=== PATIENT | male | born 1975 | race Caucasian/White ===

== ENCOUNTER 2018-09-19 12:37 | Emergency (ER) | payer SELFPAY ==
[~2018-09-19] VITALS: Ht 188 cm; Wt 82.1 kg
[2018-09-19] MEDS: MAGNESIUM HYDROXIDE 30 ML LIQUID UDC PO ONE (13:01)
[2018-09-19] MEDS ORDERED: MAGNESIUM CITRATE 296 ML BOTTLE ONE (13:01)
[2018-09-19] MEDS: MAGNESIUM CITRATE 296 ML BOTTLE PO ONE (13:01)
[2018-09-19] MEDS ORDERED: MAGNESIUM HYDROXIDE 30 ML LIQUID UDC ONE (13:02)
--- NOTE | 2018-09-19 13:20 | NUR ---
PT REPORTS ABD PAIN IS COMPLETELY RESOLVED. ABD PAIN 0/10.
[2018-09-19 13:21] VITALS: BP 116/71
--- NOTE | 2018-09-19 13:23 | NUR ---
Patient discharged to home in stable conditon. Written and verbal after care instructions given. Patient verbalizes understanding of instructions. ALL BELONGINGS W/ PT. PT SELF-AMBULATED W/O DIFFICULTY.
== END 2018-09-19 13:23 | disposition home or self-care (01) ==
LOC: ER 12:37
DX: R10.84 Generalized abdominal pain (principal); R11.0 Nausea
CPT/HCPCS: A4663